=== PATIENT | female | born 1955 | race Caucasian/White ===

== ENCOUNTER → 2023-04-10 10:32 | Outpatient (REF) | payer MEDICARE, OTHER, SELFPAY | LOC: RAD 10:32 | PROVIDERS: ATTENDING PHYSICIAN Family Medicine | DX: I82.502 Chronic embolism and thrombosis of unspecified deep veins of left lower extremity (principal); R60.0 Localized edema | CPT/HCPCS: 93971 ==

== ENCOUNTER → 2023-08-14 09:11 | Outpatient (REF) | payer MEDICARE, OTHER, SELFPAY | LOC: HWWDC 09:11 | PROVIDERS: ATTENDING PHYSICIAN Obstetrics & Gynecology; FAMILY PHYSICIAN Family Medicine | DX: Z12.31 Encounter for screening mammogram for malignant neoplasm of breast (principal) | CPT/HCPCS: 77063; 77067 ==

== ENCOUNTER → 2024-08-18 08:56 | Outpatient (REF) | payer MEDICARE, OTHER, SELFPAY | LOC: HWWDC 08:56 | PROVIDERS: ATTENDING PHYSICIAN Obstetrics & Gynecology; FAMILY PHYSICIAN Family Medicine | DX: Z12.31 Encounter for screening mammogram for malignant neoplasm of breast (principal) | CPT/HCPCS: 77063; 77067 ==